=== PATIENT | male | born 1960 | race Caucasian/White ===

== ENCOUNTER → 2021-03-05 | Outpatient (CLI) | payer BC ==
--- NOTE | 2021-03-05 09:26 | REP ---
INDICATION: NICOTINE DEPENDENCE COMPARISON: None. TECHNIQUE: Axial noncontrast images from the thoracic inlet to the upper abdomen using low-dose lung screening technique (LDCT). FINDINGS: Bilateral lung bass are well aerated. Few scattered small primarily part-solid densities measuring up to 3 mm are identified. No further suspicious nodule/mass or area of consolidation noted. No effusion. No pneumothorax. Tracheobronchial tree is patent. Mediastinum is grossly unremarkable. IMPRESSION: Lung-RADS category 2. Management recommendations include annual low-dose CT surveillance. <Electronically signed by Kyle Billings > 03/05/21 0913
== END ==
LOC: M RAD 09:03
PROVIDERS: ATTEND Family Medicine
DX: Z12.2 Encounter for screening for malignant neoplasm of respiratory organs (principal); F17.210 Nicotine dependence, cigarettes, uncomplicated

== ENCOUNTER → 2022-08-05 | Outpatient (CLI) | payer BC | LOC: M RAD 07:23 | PROVIDERS: ATTEND Family Medicine | DX: F17.211 Nicotine dependence, cigarettes, in remission (principal) ==

== ENCOUNTER 2023-02-18 19:15 | Emergency (ER) | payer BC ==
[~2023-02-18] VITALS: Ht 182.9 cm; Wt 133.3 kg
[2023-02-18 19:21] VITALS: BP 142/80; TEMP 98.9; O2SAT 99
[2023-02-19 00:50] LABS: BASO # 0.1 10^3/uL (0.0-0.2); BASO % 0.5 % (0.0-1.0); EOS # 0.1 10^3/uL (0.0-0.5); EOS % 1.2 % (0.0-3.0); HEMATOCRIT 41.6 % (42.0-52.0); LYMPH # 2.9 10^3/uL (1.5-5.0); LYMPH % 25.5 % (24.0-44.0); MEAN CORPUSCULAR HGB CONC 33.7 g/dl (32.0-36.5); MONO % 8.6 % (2.0-8.0); NEUTROPHILS # 7.2 10^3/uL (1.5-8.5); NEUTROPHILS % 63.8 % (36.0-66.0); PLATELET COUNT, AUTOMATED 255 10^3/uL (150-450); RED BLOOD COUNT 4.52 10^6/uL (4.30-6.10); WHITE BLOOD COUNT 11.3 10^3/uL (4.0-10.0)
[2023-02-19 01:06] LABS: ERYTHROCYTE SEDIMENTATION RATE 88 mm/hr (0-20)
[2023-02-19 01:09] LABS: BLOOD UREA NITROGEN 18 MG/DL (9-23); CARBON DIOXIDE LEVEL 26 MMOL/L (20-31); CHLORIDE LEVEL 102 MMOL/L (98-107); CREATININE FOR GFR 1.15 MG/DL (0.70-1.30); GLOMERULAR FILTRATION RATE > 60.0 (>49); GLUCOSE, FASTING 124 MG/DL (74-106); POTASSIUM SERUM 5.2 MMOL/L (3.5-5.1); SODIUM LEVEL 137 MMOL/L (136-145)
[2023-02-19] MEDS ORDERED: CEPHALEXIN 500 MG CAP PO ONE (01:10)
[2023-02-19] MEDS ORDERED: CEPH500C PO (01:11)
== END 2023-02-19 02:21 | disposition home or self-care (01) ==
LOC: M ED 19:15
DX: L03.115 Cellulitis of right lower limb (principal); M71.21 Synovial cyst of popliteal space [Baker], right knee; I10 Essential (primary) hypertension; Z79.899 Other long term (current) drug therapy

== ENCOUNTER → 2023-09-12 | Outpatient (CLI) | payer BC ==
[~2023-09-12] MED LIST: CEPH500C PO
== END ==
LOC: M RAD 14:37
PROVIDERS: ATTEND Family Medicine
DX: Z12.2 Encounter for screening for malignant neoplasm of respiratory organs (principal); F17.211 Nicotine dependence, cigarettes, in remission

== ENCOUNTER → 2024-11-01 | Outpatient (CLI) | payer BC | LOC: M RAD 08:06 | PROVIDERS: ATTEND Family Medicine | DX: R91.1 Solitary pulmonary nodule (principal); K76.89 Other specified diseases of liver ==

== ENCOUNTER 2025-06-11 14:33 | Inpatient (IN) | payer BC ==
[~2025-06-11] VITALS: Ht 182.9 cm; Wt 117.0 kg
[2025-06-11] MEDS ORDERED: ATOR1TAB19 PO (14:42)
[2025-06-11] MEDS ORDERED: LISI20TA33 PO (14:42)
[2025-06-11] MEDS ORDERED: SILD20TA64 PO (14:42)
[2025-06-11 15:36] LABS: BASO # 0.1 10^3/uL (0.0-0.2); BASO % 0.7 % (0.0-1.0); EOS # 0.2 10^3/uL (0.0-0.5); EOS % 1.7 % (0.0-3.0); LYMPH # 1.6 10^3/uL (1.5-5.0); LYMPH % 17.7 % (24.0-44.0); MONO # 0.8 10^3/uL (0.0-0.8); MONO % 8.6 % (2.0-8.0); NEUTROPHILS # 6.3 10^3/uL (1.5-8.5); NEUTROPHILS % 71.1 % (36.0-66.0); PLATELET COUNT, AUTOMATED 235 10^3/uL (150-450)
[2025-06-11 16:09] LABS: ALT/SGPT 73.0 U/L (7.0-40); AST/SGOT 66.0 U/L (<34); CALCIUM LEVEL 9.0 MG/DL (8.3-10.6); CARBON DIOXIDE LEVEL 23.0 MMOL/L (20-31); CHLORIDE LEVEL 105.0 MMOL/L (98-107); CREATININE FOR GFR 2.13 MG/DL (0.70-1.30); GLOMERULAR FILTRATION RATE 33.9 (>49); POTASSIUM SERUM 4.5 MMOL/L (3.5-5.1); SODIUM LEVEL 139.0 MMOL/L (136-145)
[2025-06-11] MEDS: NS (Normal Saline) 0.9% 1,000 ML IV ONE (18:13)
[2025-06-11] MEDS: PANTOPRAZOLE 40MG VIAL IV ONE (18:13)
[2025-06-11] MEDS: ONDANSETRON 4MG/2ML VIAL IV ONE (18:13)
[2025-06-11 20:45] LABS: KETONE, URINE AUTO RFX TRACE mg/dL (NEGATIVE); LEUKOCYTE ESTERASE UR AUTO RFX NEGATIVE (NEGATIVE); MUCUS, URINE RFX SMALL (NEGATIVE); NITRITE, URINE AUTO RFX NEGATIVE (NEGATIVE); RBC, URINE AUTO RFX 1 /HPF (0-3); SQUAM EPITHELIAL CELL UR AURFX 0 /HPF (0-6); WBC, URINE AUTO RFX 2 /HPF (0-3)
[2025-06-11] MEDS ORDERED: ACETAMINOPHEN 325 MG TAB PO PRN (22:15)
[2025-06-11] MEDS ORDERED: **hydrALAZINE** 10 MG TAB PO ONE (22:15)
[2025-06-11] MEDS ORDERED: ONDANSETRON 4MG/2ML VIAL IV PRN (22:15)
[2025-06-11] MEDS: NS (Normal Saline) 0.9% 1,000 ML IV SCH (23:22)
[2025-06-12] MEDS ORDERED: OMEG10002 PO (00:29)
[2025-06-12] MEDS ORDERED: ACET32TAB PO (00:29)
[2025-06-12] MEDS ORDERED: MULTTAB13 PO (00:29)
[2025-06-12] MEDS ORDERED: HOME MED LIST COMPLETE! XX SCH (00:30)
[2025-06-12 01:12] VITALS: BP 160/76; TEMP 96.9; O2SAT 98
[2025-06-12] MEDS: ATORVASTATIN 10 MG TAB PO SCH (01:26)
[2025-06-12 04:29] VITALS: BP 161/77; TEMP 97.7; O2SAT 97
[2025-06-12] MEDS: **hydrALAZINE** 10 MG TAB PO PRN (04:33)
[2025-06-12 08:11] LABS: BASO # 0.1 10^3/uL (0.0-0.2); BASO % 0.7 % (0.0-1.0); EOS # 0.2 10^3/uL (0.0-0.5); EOS % 2.6 % (0.0-3.0); LYMPH # 1.7 10^3/uL (1.5-5.0); LYMPH % 20.4 % (24.0-44.0); MONO # 0.8 10^3/uL (0.0-0.8); MONO % 9.3 % (2.0-8.0); NEUTROPHILS # 5.7 10^3/uL (1.5-8.5); NEUTROPHILS % 66.9 % (36.0-66.0); PLATELET COUNT, AUTOMATED 213 10^3/uL (150-450)
[2025-06-12 08:36] LABS: ALT/SGPT 64.0 U/L (7.0-40); AST/SGOT 57.0 U/L (<34); CALCIUM LEVEL 8.4 MG/DL (8.3-10.6); CARBON DIOXIDE LEVEL 22.0 MMOL/L (20-31); CHLORIDE LEVEL 109.0 MMOL/L (98-107); CREATININE FOR GFR 2.19 MG/DL (0.70-1.30); GLOMERULAR FILTRATION RATE 32.8 (>49); MAGNESIUM LEVEL 1.9 MG/DL (1.8-2.4); PHOSPHORUS LEVEL 3.7 MG/DL (2.4-5.1); POTASSIUM SERUM 4.5 MMOL/L (3.5-5.1); SODIUM LEVEL 141.0 MMOL/L (136-145)
[2025-06-12] MEDS ORDERED: DOCUSATE SODIUM 100 MG CAPSULE PO SCH (09:00)
[2025-06-12] MEDS ORDERED: PANTOPRAZOLE 40MG VIAL IV ONE (09:00)
[2025-06-12] MEDS: ENOXAPARIN 40 MG/0.4 ML SYRINGE (J1650 PER 10MG) SC SCH (09:18)
[2025-06-12] MEDS: DOCUSATE SODIUM 100 MG CAPSULE PO SCH (09:18)
[2025-06-12] MEDS: PANTOPRAZOLE 40MG VIAL IV SCH (09:18)
[2025-06-12] MEDS: ACETAMINOPHEN 325 MG TAB PO PRN (10:53)
[2025-06-12 12:00] VITALS: BP 131/71; TEMP 98.6; O2SAT 97
[2025-06-12] MEDS: ONDANSETRON 4MG/2ML VIAL IV PRN (17:51)
[2025-06-12 19:36] VITALS: BP 148/69; TEMP 99.1; O2SAT 97
[2025-06-13 04:59] VITALS: BP 136/63; TEMP 98.4; O2SAT 98
[2025-06-13 07:34] LABS: BASO # 0.1 10^3/uL (0.0-0.2); BASO % 0.5 % (0.0-1.0); EOS # 0.1 10^3/uL (0.0-0.5); EOS % 0.8 % (0.0-3.0); LYMPH # 2.4 10^3/uL (1.5-5.0); LYMPH % 20.4 % (24.0-44.0); MONO # 1.3 10^3/uL (0.0-0.8); MONO % 11.1 % (2.0-8.0); NEUTROPHILS # 7.9 10^3/uL (1.5-8.5); NEUTROPHILS % 66.9 % (36.0-66.0); PLATELET COUNT, AUTOMATED 252 10^3/uL (150-450)
[2025-06-13 08:04] LABS: CALCIUM LEVEL 8.0 MG/DL (8.3-10.6); CARBON DIOXIDE LEVEL 21.0 MMOL/L (20-31); CHLORIDE LEVEL 108.0 MMOL/L (98-107); CREATININE FOR GFR 2.46 MG/DL (0.70-1.30); GLOMERULAR FILTRATION RATE 28.5 (>49); POTASSIUM SERUM 4.4 MMOL/L (3.5-5.1); SODIUM LEVEL 140.0 MMOL/L (136-145)
[2025-06-13 10:20] LABS: C REACTIVE PROTEIN QUANTITATIV 4.68 MG/DL (<1.0)
[2025-06-13 11:52] VITALS: BP 149/70; TEMP 97.2; O2SAT 97
[2025-06-13 20:00] VITALS: BP 159/70; TEMP 99.1; O2SAT 97
[2025-06-14 04:00] VITALS: BP 157/75; TEMP 98.5; O2SAT 97
[2025-06-14 06:10] LABS: BASO # 0.0 10^3/uL (0.0-0.2); BASO % 0.4 % (0.0-1.0); EOS # 0.1 10^3/uL (0.0-0.5); EOS % 1.0 % (0.0-3.0); LYMPH # 1.3 10^3/uL (1.5-5.0); LYMPH % 12.0 % (24.0-44.0); MONO # 1.1 10^3/uL (0.0-0.8); MONO % 10.0 % (2.0-8.0); NEUTROPHILS # 8.0 10^3/uL (1.5-8.5); NEUTROPHILS % 76.3 % (36.0-66.0); PLATELET COUNT, AUTOMATED 191 10^3/uL (150-450)
[2025-06-14 06:28] LABS: C REACTIVE PROTEIN QUANTITATIV 9.78 MG/DL (<1.0)
[2025-06-14 06:31] LABS: ALT/SGPT 50.0 U/L (7.0-40); AST/SGOT 47.0 U/L (<34); CALCIUM LEVEL 8.3 MG/DL (8.3-10.6); CARBON DIOXIDE LEVEL 21.0 MMOL/L (20-31); CHLORIDE LEVEL 108.0 MMOL/L (98-107); CREATININE FOR GFR 2.39 MG/DL (0.70-1.30); GLOMERULAR FILTRATION RATE 29.5 (>49); MAGNESIUM LEVEL 1.8 MG/DL (1.8-2.4); PHOSPHORUS LEVEL 3.5 MG/DL (2.4-5.1); POTASSIUM SERUM 4.2 MMOL/L (3.5-5.1); SODIUM LEVEL 140.0 MMOL/L (136-145)
[2025-06-14] MEDS: amLODIPine 10 MG TAB PO ONE (10:39)
[2025-06-14 12:00] VITALS: BP 163/79; TEMP 98.7; O2SAT 96
[2025-06-14 19:55] VITALS: BP 149/74; TEMP 97.2; O2SAT 95
[2025-06-15 04:16] VITALS: BP 143/71; TEMP 98.1; O2SAT 96
[2025-06-15 06:55] LABS: BASO # 0.1 10^3/uL (0.0-0.2); BASO % 0.4 % (0.0-1.0); EOS # 0.1 10^3/uL (0.0-0.5); EOS % 0.8 % (0.0-3.0); LYMPH # 1.9 10^3/uL (1.5-5.0); LYMPH % 14.1 % (24.0-44.0); MONO # 1.3 10^3/uL (0.0-0.8); MONO % 10.1 % (2.0-8.0); NEUTROPHILS # 9.9 10^3/uL (1.5-8.5); NEUTROPHILS % 74.3 % (36.0-66.0); PLATELET COUNT, AUTOMATED 229 10^3/uL (150-450)
[2025-06-15 08:03] LABS: ALT/SGPT 53.0 U/L (7.0-40); AST/SGOT 47.0 U/L (<34); C REACTIVE PROTEIN QUANTITATIV 15.74 MG/DL (<1.0); CALCIUM LEVEL 8.4 MG/DL (8.3-10.6); CARBON DIOXIDE LEVEL 23.0 MMOL/L (20-31); CHLORIDE LEVEL 105.0 MMOL/L (98-107); CREATININE FOR GFR 2.47 MG/DL (0.70-1.30); GLOMERULAR FILTRATION RATE 28.4 (>49); MAGNESIUM LEVEL 1.8 MG/DL (1.8-2.4); PHOSPHORUS LEVEL 4.1 MG/DL (2.4-5.1); POTASSIUM SERUM 4.3 MMOL/L (3.5-5.1); SODIUM LEVEL 140.0 MMOL/L (136-145)
[2025-06-15] MEDS: amLODIPine 10 MG TAB PO SCH (08:49)
[2025-06-15 10:04] LABS: SOURCE, BODY FLUID LFT KNEE
[2025-06-15 10:05] LABS: CRYSTALS, BODY FLUID URIC ACID (NONE SEEN); SOURCE, BODY FLUID CRYSTALS LFT KNEE
[2025-06-15 12:01] VITALS: BP 158/74; TEMP 97.6; O2SAT 98
[2025-06-15] MEDS: FUROSEMIDE 20 MG/2 ML VIAL IV ONE (12:04)
[2025-06-15] MEDS: predniSONE 20 MG TAB PO SCH (12:11)
[2025-06-15 19:54] VITALS: BP 169/78; TEMP 98.6; O2SAT 96
[2025-06-16 04:15] VITALS: BP 143/74; TEMP 98.4; O2SAT 95
[2025-06-16 05:27] LABS: BASO # 0.0 10^3/uL (0.0-0.2); BASO % 0.2 % (0.0-1.0); EOS # 0.0 10^3/uL (0.0-0.5); EOS % 0.0 % (0.0-3.0); LYMPH # 1.1 10^3/uL (1.5-5.0); LYMPH % 8.7 % (24.0-44.0); MONO # 0.9 10^3/uL (0.0-0.8); MONO % 7.0 % (2.0-8.0); NEUTROPHILS # 10.9 10^3/uL (1.5-8.5); NEUTROPHILS % 83.7 % (36.0-66.0); PLATELET COUNT, AUTOMATED 252 10^3/uL (150-450)
[2025-06-16 05:50] LABS: ALT/SGPT 47.0 U/L (7.0-40); AST/SGOT 35.0 U/L (<34); CALCIUM LEVEL 8.1 MG/DL (8.3-10.6); CARBON DIOXIDE LEVEL 22.0 MMOL/L (20-31); CHLORIDE LEVEL 102.0 MMOL/L (98-107); CREATININE FOR GFR 2.36 MG/DL (0.70-1.30); GLOMERULAR FILTRATION RATE 30.0 (>49); MAGNESIUM LEVEL 1.7 MG/DL (1.8-2.4); PHOSPHORUS LEVEL 4.3 MG/DL (2.4-5.1); POTASSIUM SERUM 3.9 MMOL/L (3.5-5.1); SODIUM LEVEL 137.0 MMOL/L (136-145)
[2025-06-16 08:15] LABS: C REACTIVE PROTEIN QUANTITATIV 15.46 MG/DL (<1.0)
[2025-06-16 08:29] VITALS: BP 143/74
[2025-06-16] MEDS: MAG SULF 1GM/100ML (MAG RUN) 1 GM in IV 1 EA IV SCH (08:29)
[2025-06-16] MEDS ORDERED: AMLO1TAB25 PO (09:57)
[2025-06-16] MEDS ORDERED: PRED20TA PO (09:57)
[2025-06-16] MEDS ORDERED: FURO20TA2 PO (09:57)
[2025-06-16] MEDS: FUROSEMIDE 20 MG TAB PO SCH (10:16)
[2025-06-18 21:28] LABS: LYME TOTAL ANTIBODY CIA <= 0.90 Index (<=0.90)
== END 2025-06-16 11:45 | disposition home or self-care (01) | DRG 469 ==
LOC: M ED 14:33 → M ED INP 14:34 → M MS4PR 06-12 01:07 → OBSVTOIN 06-13 09:38
PROVIDERS: ADMIT Internal Medicine; ATTEND Internal Medicine
DX: N17.9 Acute kidney failure, unspecified (principal); C78.7 Secondary malignant neoplasm of liver and intrahepatic bile duct; I12.9 Hypertensive chronic kidney disease with stage 1 through stage 4 chronic kidney disease, or unspecified chronic kidney disease; G47.33 Obstructive sleep apnea (adult) (pediatric); M17.12 Unilateral primary osteoarthritis, left knee; R63.4 Abnormal weight loss; Z87.891 Personal history of nicotine dependence; Z79.899 Other long term (current) drug therapy; E78.5 Hyperlipidemia, unspecified; M10.9 Gout, unspecified; N18.30 Chronic kidney disease, stage 3 unspecified